=== PATIENT | female | born 1995 | race Caucasian/White ===

== ENCOUNTER → 2022-05-15 | Day surgery (SDC) | payer OTHER ==
[~2022-05-15] VITALS: Ht 167.6 cm
[~2022-05-15] MED LIST: AUGMENTIN 875875 MG PO; DEBLITANE0.35 MG PO; FERROUS GLUCON324 MG PO; OCUFLOX 0.3% 5 M5 ML OT
[2022-05-15 07:30] VITALS: BP 97/61
[2022-05-15 08:06] VITALS: BP 107/46
[2022-05-15 08:20] VITALS: BP 107/49
[2022-05-15 08:35] VITALS: BP 98/46
[2022-05-15 08:50] VITALS: BP 110/80
[2022-05-15 09:18] VITALS: BP 98/46
== END | disposition home or self-care (01) ==
LOC: SDC 05-10 10:15
PROVIDERS: ATTEND Specialist
DX: H65.493 Other chronic nonsuppurative otitis media, bilateral (principal); F17.210 Nicotine dependence, cigarettes, uncomplicated